=== PATIENT | female | born 1985 | race Caucasian/White ===

== ENCOUNTER → 2017-08-22 | Outpatient (REF) | payer OTHER | LOC: M SFHCLERA 11:16 | DX: R30.0 Dysuria (principal) | CPT/HCPCS: 87086 ==

== ENCOUNTER 2020-05-17 13:33 | Emergency (ER) | payer OTHER ==
[2020-05-17] MEDS ORDERED: AMIT25TA17 PO (14:13)
[2020-05-17] MEDS ORDERED: CETI-24 PO (14:13)
[2020-05-17] MEDS ORDERED: AMOX875T2 PO (14:13)
[2020-05-17] MEDS ORDERED: PSEU-52 PO (14:13)
[2020-05-17] MEDS ORDERED: LIDOCAINE 1% SDV 5ML VIAL DILUENT ONE (15:05)
[2020-05-17] MEDS ORDERED: cefTRIAXone SOD 1GM VIAL (J0696 PER 250MG) IM ONE (15:05)
[2020-05-17 15:53] VITALS: BP 136/91
== END 2020-05-17 16:05 | disposition home or self-care (01) ==
LOC: M ED 13:33
DX: H65.01 Acute serous otitis media, right ear (principal); M54.2 Cervicalgia; Z88.8 Allergy status to other drugs, medicaments and biological substances
CPT/HCPCS: 96372; 99283; J0696

== ENCOUNTER 2020-05-18 15:03 | Emergency (ER) | payer OTHER ==
[~2020-05-18] VITALS: Ht 170.2 cm; Wt 86.8 kg
[~2020-05-18 15:03] MED LIST: AMIT25TA17 PO; AMOX875T2 PO; CETI-24 PO; PSEU-52 PO
[2020-05-18 15:50] VITALS: BP 126/76
== END 2020-05-18 15:56 | disposition home or self-care (01) ==
LOC: M ED 15:03
DX: H66.91 Otitis media, unspecified, right ear (principal); Z79.899 Other long term (current) drug therapy; Z88.8 Allergy status to other drugs, medicaments and biological substances